=== PATIENT | female | born 1990 | race African-American/Black ===

== ENCOUNTER 2024-07-12 03:40 | Emergency (ER) | payer BC ==
[~2024-07-12] VITALS: Ht 175.3 cm; Wt 75.7 kg
[2024-07-12 04:26] VITALS: BP 118/68; TEMP 98
[2024-07-12] MEDS ORDERED: FLUT16SP BNOSTRILS (05:15)
[2024-07-12] MEDS ORDERED: LORA10TA7 PO (05:15)
[2024-07-12] MEDS ORDERED: AMOX-430 PO (05:15)
[2024-07-12] MEDS ORDERED: AMOX50SU15 PO (05:27)
[2024-07-12 05:35] VITALS: O2SAT 97
== END 2024-07-12 05:35 | disposition home or self-care (01) ==
LOC: ER 03:42
DX: J32.9 Chronic sinusitis, unspecified (principal); R13.10 Dysphagia, unspecified; Z79.899 Other long term (current) drug therapy

== ENCOUNTER 2024-07-26 20:44 | Emergency (ER) | payer BC ==
[~2024-07-26] VITALS: Ht 177.8 cm; Wt 71.7 kg
[~2024-07-26 20:44] MED LIST: AMOX50SU15 PO; FLUT16SP BNOSTRILS; LORA10TA7 PO
[2024-07-26 20:51] VITALS: TEMP 98
[2024-07-26] MEDS ORDERED: MAG HYDROX/AL HYDROX/SIMETH 30 ML UDC ONE (23:02)
[2024-07-26] MEDS: MAG HYDROX/AL HYDROX/SIMETH 30 ML UDC PO ONE (23:04)
[2024-07-26 23:35] VITALS: BP 134/83; O2SAT 98
== END 2024-07-26 23:35 | disposition home or self-care (01) ==
LOC: ER 20:56
DX: R09.A2 Foreign body sensation, throat (principal)